=== PATIENT | female | born 1930 | race Caucasian/White ===

== ENCOUNTER 2018-01-30 12:16 | Day surgery (SDC) | payer MEDICARE, OTHER ==
[2018-01-30] MEDS ORDERED: LIDOCAINE 1% W/EPI 1:200,000 MPF 30ML SQ ONE (12:17)
--- NOTE | 2018-02-02 07:44 | Operative Note ---
DATE OF SURGERY: 01/30/2018 PREOPERATIVE DIAGNOSIS: LEFT CARPAL TUNNEL SYNDROME. POSTOPERATIVE DIAGNOSIS: LEFT CARPAL TUNNEL SYNDROME. PROCEDURE: LEFT CARPAL TUNNEL RELEASE. STAFF SURGEON: DUDLEY HERNANDEZ M.D. ANESTHESIA: LOCAL. PREPARATION: CHLORAPREP. INDIVIDUAL CONSIDERATIONS: NONE. PROCEDURE: The patient was taken to the Operating Room and placed supine on the operating table. She had a successful induction of local anesthesia after she was prepped and draped in the usual fashion. 1% Lidocaine with Epinephrine infiltrated along the longitudinal wrist crease. The limb was elevated. The tourniquet was inflated to 250 mmHg. The patient had an incision along the longitudinal wrist crease and just barely crossing the flexion increase at a 45 degree angle or ulnarly. Sharp dissection was carried down through the skin and subcutaneous tissue. Small veins were coagulated with a Bovie. Sharp dissection carried through the the palmar fascia and then through the transverse metacarpal fascia distally to the superficial arch and recurrent branch, and proximally to the antebrachial fascia. The median nerve was obviously contused but intact. There were no tumors. The tourniquet was let down. Hemostasis was obtained with compression and a Bovie. After irrigation, the skin was approximated with interrupted 4-0 nylon in a vertical mattress fashion. A sterile Bulkee compressive hand dressing was applied. The patient tolerated the procedure well. Needle and sponge counts were correct. Estimated blood loss was minimal and she was taken back to Recovery in good condition. There were no complications. JOB NUMBER: [id number] MTDD
== END 2018-01-30 17:20 | disposition home or self-care (01) ==
LOC: SUR 12:16
PROVIDERS: ATTEND Orthopaedic Surgery
DX: G56.02 Carpal tunnel syndrome, left upper limb (principal); I10 Essential (primary) hypertension; E78.00 Pure hypercholesterolemia, unspecified